=== PATIENT | female | born 1985 | race Caucasian/White ===

== ENCOUNTER → 2021-09-09 | Outpatient (CLI) | payer OTHER ==
--- NOTE | 2021-09-09 14:23 | Diagnostic Imaging Report ---
PROCEDURE: CT sinuses without contrast TECHNIQUE: Multiple contiguous axial images were obtained through the sinuses without the use of intravenous contrast. Coronal and sagittal reformations were then performed. Auto Exposure Controls were utilized during the CT exam to meet ALARA standards for radiation dose reduction. INDICATION: Severe sinus infection. FINDINGS: There is very mild leftward nasal septal deviation and spurring. This is adjacent to but did not distort the left inferior nasal turbinate. There is partial aeration and radha bullosa formation in the right middle nasal turbinate. The maxillary sinus ostia, however, appeared patent bilaterally. There is slight lobular membrane thickening in the floors of the maxillary sinuses bilaterally, slightly greater right where the tissue has a maximal thickness of 3 mm. The ethmoid air cells anteriorly and posteriorly are clear. The frontal sinuses are clear and well aerated. Sphenoid sinuses are clear. There is no mastoid effusion. The external auditory canals and middle ear cavities are normal. The central skull base is unremarkable. Orbits are unremarkable. IMPRESSION: 1. Mild lobular membrane thickening in the maxillary sinus floors. No ostial obstruction, bony destruction, or air-fluid level. 2. Small right middle nasal turbinate radha bullosa and mild leftward nasal septal spurring and deviation. No air-fluid levels. Dictated by: Dictated on workstation # [id number]
== END ==
LOC: RAD 11:45
PROVIDERS: ATTEND Otolaryngology Otolaryngology/Facial Plastic Surgery
DX: J34.2 Deviated nasal septum (principal); J34.89 Other specified disorders of nose and nasal sinuses; J32.9 Chronic sinusitis, unspecified
CPT/HCPCS: 70486

== ENCOUNTER 2021-09-15 11:22 | Outpatient (CLI) | payer OTHER ==
[~2021-09-15] VITALS: Ht 165.1 cm; Wt 60.0 kg
[2021-09-15] MEDS ORDERED: SERT-413 PO (12:45)
== END 2021-09-15 12:52 ==
LOC: PREOP 11:22
PROVIDERS: ATTEND Otolaryngology Otolaryngology/Facial Plastic Surgery
DX: Z01.818 Encounter for other preprocedural examination (principal)

== ENCOUNTER 2021-09-23 05:50 | Day surgery (SDC) | payer OTHER ==
[2021-09-23] VITALS (10 sets, daily range): BP systolic 115–138; BP diastolic 73–97
[~2021-09-23] VITALS: Ht 165 cm; Wt 60.0 kg
[~2021-09-23 05:50] MED LIST: SERT-413 PO
[2021-09-23] MEDS ORDERED: HYDROCORTISONE 100 MG/2 ML (Solu-CORTEF) VIAL IV ONE (06:15)
[2021-09-23] MEDS ORDERED: AMPICILLIN/SULBACTAM INJECTION 1.5 GM in NS (IVPB) 100 ML IV ONE (06:15)
[2021-09-23 06:31] LABS: BASOPHILS # (AUTO) 0.1 10^3/uL (0.0-0.1); BASOPHILS % (AUTO) 1 % (0-10); EOSINOPHILS # (AUTO) 0.1 10^3/uL (0.0-0.3); EOSINOPHILS % (AUTO) 2 % (0-10); HEMATOCRIT 44 % (35-52); HEMOGLOBIN 15.1 g/dL (11.5-16.0); LYMPHOCYTES # (AUTO) 4.4 10^3/uL (1.0-4.0); LYMPHOCYTES % (AUTO) 46 % (12-44); MEAN CORPUSCULAR HEMOGLOBIN 30 pg (25-34); MEAN CORPUSCULAR HGB CONC 34 g/dL (32-36); MEAN CORPUSCULAR VOLUME 88 fL (80-99); MEAN PLATELET VOLUME 9.9 fL (9.0-12.2); MONOCYTES # (AUTO) 0.6 10^3/uL (0.0-1.0); MONOCYTES % (AUTO) 7 % (0-12); NEUTROPHILS # (AUTO) 4.3 10^3/uL (1.8-7.8); NEUTROPHILS % (AUTO) 45 % (42-75); PLATELET COUNT 208 10^3/uL (130-400); WHITE BLOOD COUNT 9.5 10^3/uL (4.3-11.0)
[2021-09-23 06:36] LABS: POTASSIUM 3.6 MMOL/L (3.6-5.0)
[2021-09-23 06:37] LABS: CALCIUM 9.6 MG/DL (8.5-10.1)
[2021-09-23 06:41] LABS: CREATININE SERUM 1.02 MG/DL (0.60-1.30)
[2021-09-23] MEDS: LACTATED RINGERS 1,000 ML IV PRN ×2 (06:43→08:17)
[2021-09-23] MEDS ORDERED: BSS 15 ML ONE (06:57)
[2021-09-23] MEDS ORDERED: LIDOCAINE/EPI 2% 1:100,00 (XYLOCAINE) 20 ML VIAL ONE (06:57)
[2021-09-23] MEDS ORDERED: COCAINE HCL 4% 2 ML SYR ONE (06:57)
[2021-09-23] MEDS ORDERED: PHENYLEPHRINE 0.5% NASAL SPR (NEO-SYNEPHRINE) REG ONE (06:57)
--- NOTE | 2021-09-23 07:09 | Progress Note-Pre Operative ---
Pre-Operative Progress Note H&P Reviewed The H&P was reviewed, patient examined and no changes noted. Date Seen by Provider: Sep 23, 2021 Time Seen by Provider: : Date H&P Reviewed: Sep 23, 2021 Time H&P Reviewed: :30 Pre-Operative Diagnosis: Bilat ESS, Deviated Septum, Bilat Hyper of Inf Turbs ALEXANDRA LÓPEZ MD Sep 23, 2021 07:09
--- NOTE | 2021-09-23 07:10 | Progress Note-Post Operative ---
Post-Operative Progess Note Surgeon (s)/Digital Tech (s) Surgeon ALEXANDRA LÓPEZ MD Digital Tech n/a Pre-Operative Diagnosis Bilat ESS, Deviated Septum, Bilat Hyper of Inf Turbs Post-Operative Diagnosis same Post-Op Procedure Note Date of Procedure: Sep 23, 2021 Name of Procedure Performed: Bilat Ess, Nasal Septoplasty, Bialt Red of Inf Turbs Description & Findings Description and Findings: n/a Anesthesia Type get Estimated Blood Loss minimal Packing dnp bilaterally. Specimen(s) collected/removed bilat Chronic Sinusitis ALEXANDRA LÓPEZ MD Sep 23, 2021 07:10
[2021-09-23] MEDS ORDERED: PROMETHAZINE INJ 25 MG/ML (PHENERGAN) AMP IVP PRN (07:15)
[2021-09-23] MEDS ORDERED: predniSONE 20 MG TAB PO ONE (07:15)
[2021-09-23] MEDS ORDERED: HYDROcodone/APAP 5 MG/325 MG (LORTAB) TAB PO PRN (07:15)
[2021-09-23] MEDS ORDERED: D5 1/2 NS W/KCL 20 MEQ/L 1,000 ML IV SCH (07:15)
[2021-09-23] MEDS ORDERED: GLYCOPYRROLATE 0.2 MG/ML (ROBINUL) 2 ML VIAL ONE (07:49)
[2021-09-23] MEDS ORDERED: NEOSTIGMINE 3 MG/3 ML VIAL ONE (07:49)
[2021-09-23] MEDS ORDERED: ROCURONIUM 10 MG/ML 5 ML SYRINGE IV ONE (07:49)
[2021-09-23] MEDS ORDERED: LIDOCAINE PF 2% 5 ML (XYLOCAINE) VIAL ONE (07:49)
[2021-09-23] MEDS ORDERED: fentaNYL INJ 100 MCG/2 ML AMP ONE (07:49)
[2021-09-23] MEDS ORDERED: MIDAZOLAM 2 MG/2 ML (VERSED) VIAL ONE (07:49)
[2021-09-23] MEDS ORDERED: proPOfol 200 MG/20 ML (DIPRIVAN) VIAL IV ONE (07:49)
[2021-09-23] MEDS ORDERED: ONDANSETRON 4 MG/2 ML (SDV) Z0FRAN ONE (07:49)
[2021-09-23] MEDS ORDERED: SEVOFLURANE (ULTANE) 15 ML INHAL SOLN ONE (09:15)
[2021-09-23] MEDS ORDERED: morphine INJ 10 MG/ML 1ML (SYR OR VIAL) IVP ONE (09:45)
[2021-09-23] MEDS ORDERED: ONDANSETRON 4 MG/2 ML (SDV) Z0FRAN IVP PRN (09:45)
[2021-09-23] MEDS ORDERED: HYDROmorphone 2 MG/ML VIAL (DILAUDID) IV ONE (09:45)
[2021-09-23] MEDS ORDERED: PRD20T PO (09:54)
[2021-09-23] MEDS ORDERED: ACHD5005 PO (09:54)
[2021-09-23] MEDS ORDERED: AMOX-355 PO (09:54)
[2021-09-23] MEDS ORDERED: predniSONE 20 MG TAB PO NR (10:23)
--- NOTE | 2021-09-23 13:20 | Anesthesia-General Post-Op ---
General Patient Condition Mental Status/LOC: Same as Preop Cardiovascular: Satisfactory Nausea/Vomiting: Absent Respiratory: Satisfactory Pain: Controlled Complications: Absent Post Op Complications Complications None Follow Up Care/Instructions Patient Instructions None needed. Anesthesia/Patient Condition Patient Condition Patient was doing well this morning after the procedure, no complaints, stable vital signs, no apparent adverse anesthesia problems. SVETLANA CHAO DO Sep 23, 2021 13:20
== END 2021-09-23 11:05 | disposition home or self-care (01) ==
LOC: SDC 05:50
PROVIDERS: ATTEND Otolaryngology Otolaryngology/Facial Plastic Surgery
DX: J32.9 Chronic sinusitis, unspecified (principal); J34.2 Deviated nasal septum; J34.3 Hypertrophy of nasal turbinates; J34.89 Other specified disorders of nose and nasal sinuses
CPT/HCPCS: 36415; 80048; 84703; 85025; 87081

== ENCOUNTER → 2022-08-18 | Outpatient (CLI) | payer OTHER ==
[~2022-08-18] MED LIST changes: +ACHD5005 PO; +AMOX-355 PO; +PRD20T PO
--- NOTE | 2022-08-18 12:04 | Diagnostic Imaging Report ---
Indication: Routine screening. Comparison is made with prior mammogram of 09/19/2013. 2-D and 3-D bilateral screening mammography was performed with CAD. Both breasts are heterogeneously dense, limiting the sensitivity of mammography. There is a rounded mass in the upper right breast at approximately the 11:00 to 12:00 location approximately 11 to 12 cm from the nipple. This measures approximately 17 mm in size. Left breast is unremarkable. There are no malignant-appearing microcalcifications. Axillae are unremarkable. IMPRESSION: BI-RADS 0 Slightly lobulated density in the upper right breast approximately 12 cm from the nipple, 11:00 to 12:00 location. Further evaluation with ultrasound is recommended. ACR BI-RADS Category 0: Incomplete. (Needs additional imaging evaluation). Result letter will be mailed to the patient. Note: At least 10% of breast cancer is not imaged by mammography. Dictated by: Dictated on workstation # [id number]
== END ==
LOC: RAD 07:30
DX: Z12.31 Encounter for screening mammogram for malignant neoplasm of breast (principal)
CPT/HCPCS: 77063; 77067

== ENCOUNTER → 2022-09-05 | Outpatient (CLI) | payer OTHER ==
--- NOTE | 2022-09-05 10:33 | Diagnostic Imaging Report ---
EXAMINATION: Ultrasound of the right breast. INDICATION: Abnormal mammogram. FINDINGS: The screening mammogram performed on 08/18/2022 noted a 17 mm lobulated rounded mass in the 12 o'clock position of the right breast approximately 12 cm from the nipple. The ultrasound examination of this area does show a lobulated solid mass with a small amount of internal vascularity. In a patient of this age, this could certainly represent a fibroadenoma. In my conversation with the patient, she did relate that she had a prior resection of a mass approximately 10 years ago. She did not recall the nature of the mass but she was told that it was not malignant. Also, during the course of this exam, another mass was identified. This mass lies approximately 6 to 7 cm deep to the nipple and measures 2.1 x 1.0 x 1.4 cm. This mass is not as hypoechoic or lobulated as the lesion in the 12 o'clock position. There does seem to through-transmission associated with this finding and this could represent a cyst which has been complicated by infection or hemorrhage. There is a tiny focus of increased vascularity which would weigh against a cyst; however, this focus of increased vascularity could be artifactual in nature. It is my understanding that the patient has a family history for breast cancer. Given the family history, these two questionable lesions, and the dense fibroglandular tissue throughout each breast, I would recommend that MRI of the breast be performed for a more sensitive evaluation of the breast tissue. Ultimately, I do feel that the solid mass in the 12 o'clock position of the right breast will need to be biopsied using ultrasound guidance. Even so, I do feel the MRI exam would be worthwhile. IMPRESSION: There is a solid lobulated mass corresponding to the finding of the mammogram in the 12 o'clock position of the right breast. There is also another solid-appearing mass deep in the right breast. MRI would be recommended to better characterize these findings and the remainder of the breast tissue as well. Ultimately, the solid mass in the right breast at the 12 o'clock position will need to be biopsied with ultrasound guidance. ACR BI-RADS Category 0: Incomplete. (Needs additional imaging evaluation). Result letter will be mailed to the patient. Note: At least 10% of breast cancer is not imaged by mammography. Dictated by: Dictated on workstation # [id number]
== END ==
LOC: RAD 08:26
DX: N63.15 Unspecified lump in the right breast, overlapping quadrants (principal)

== ENCOUNTER → 2022-09-16 | Outpatient (CLI) | payer OTHER ==
[~2022-09-16] MED LIST changes: +GADOBUTROL 15 MMOL/15 ML (GADAVIST) VIAL IV ONE
--- NOTE | 2022-09-20 15:26 | Diagnostic Imaging Report ---
EXAMINATION: MRI BREAST BILAT W W/O CON INDICATION: Abnormal right breast findings on recent screening mammogram and diagnostic right breast ultrasound. Pain and palpable lump in the right breast. Patient reports family history of breast cancer and personal history of previous benign excisional right breast biopsy. TECHNIQUE: Utilizing a 1.5 Melanie magnet, the patient was placed in the prone position with a dedicated breast coil in place. Axial STIR, T2 fat sat, T1 and T1 fat-sat images are obtained without contrast. Postcontrast high-resolution dynamic images are also obtained. Pre and post contrasted images are then evaluated with ADmantX for evaluation of possible angiogenesis. 6 mL of Gadavist gadolinium contrast material was administered intravenously. COMPARISON: Screening mammogram performed on 08/18/2022 and right breast ultrasound performed on 09/05/2022. FINDINGS: RIGHT BREAST: The breast is composed of extreme fibroglandular tissue. There is marked background parenchymal enhancement, with scattered foci of enhancement also related to background. A 1.5 x 1.5 x 1.6 cm T2 hyperintense mass with lobulated margins is demonstrated in the 12 o'clock posterior depth breast approximately 10 cm from the nipple and demonstrates persistent-type enhancement on kinetic analysis. This corresponds with recent mammogram and ultrasound findings. Also corresponding with prior ultrasound findings is a similar appearing 1.1 x 1.6 x 1.3 cm circumscribed, enhancing mass near the 12 o'clock axis at middle depth 6.5 cm from the nipple. In the 3-4 o'clock anterior depth breast approximately 3.5 cm medial to the nipple and located immediately adjacent to the skin surface is a smaller, similar-appearing 0.5 x 1.1 x 1.6 cm bilobed, enhancing mass with persistent-type enhancement on kinetic analysis. There is no other suspicious mass or non-mass enhancement in the right breast that stands out above background. There is no axillary or internal mammary adenopathy. LEFT BREAST: The breast is composed of extreme fibroglandular tissue. There is marked background parenchymal enhancement, with scattered foci of enhancement also related to background. There is no suspicious mass or non-mass enhancement that stands out above background. There is no axillary or internal mammary adenopathy. 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 Two of these masses along the 12 o'clock axis were seen on prior ultrasound imaging. As previously recommended, ultrasound-guided biopsy is recommended for the right breast mass at 12 o'clock posterior depth given its somewhat irregular margins. 2nd look (MRI directed) ultrasound of the mass in the 3-4 o'clock anterior depth right breast is also recommended and can be performed at the time of right breast biopsy. Unless otherwise indicated by ultrasound of the right breast mass at 3-4 o'clock or biopsy results of the right breast mass at 12 o'clock posterior depth, short interval follow-up is recommended with repeat ultrasound in 6 months to demonstrate stability. BI-RADS Category 3: Probably Benign RECOMMENDATIONS: Given patient's reported family history of breast cancer, formal risk assessment and possible genetic analysis are recommended, if not already performed. If patient is found to have a genetic mutation and/or lifetime risk of developing breast cancer is greater than 20%, consideration can be given to supplemental screening with annual breast MRI, alternating every 6 months with annual screening mammogram. Dictated by: Dictated on workstation # [id number]
== END ==
LOC: RAD 08:40
PROVIDERS: ATTEND Family Medicine
DX: N63.10 Unspecified lump in the right breast, unspecified quadrant (principal); R92.8 Other abnormal and inconclusive findings on diagnostic imaging of breast
CPT/HCPCS: 77049

== ENCOUNTER → 2022-09-29 | Outpatient (CLI) | payer OTHER ==
[~2022-09-29] VITALS: Ht 165.1 cm; Wt 59.1 kg
[~2022-09-29] MED LIST changes: -GADOBUTROL 15 MMOL/15 ML (GADAVIST) VIAL IV ONE; +LIDOCAINE 1% INJ 10 ML VIAL INJ ONE; +LIDOCAINE 1% INJ 10 ML VIAL ONE
--- NOTE | 2022-09-29 09:48 | Diagnostic Imaging Report ---
INDICATION: Right breast mass. Patient presents for ultrasound guided core biopsy. Patient brought to the procedure and placed on table in the supine position. Ultrasound imaging of the upper right breast was performed to evaluate appropriate entry site. Right breast was then prepped and draped in usual sterile fashion. Small amount of 1% lidocaine was utilized for local anesthesia. 4 core biopsies were obtained of the lobulated hypoechoic solid mass 12:00 location right breast, 12 cm from the nipple utilizing 14-gauge achieve needle. A marker clip was then deployed. Needle was removed and hemostasis was obtained. Patient tolerated the procedure well and left the Department in stable condition. IMPRESSION: Successful ultrasound-guided core biopsy of the lobulated solid mass 12:00 location right breast, 12 cm from the nipple. Pathology results are currently pending. Dictated by: Dictated on workstation # [id number]
== END ==
LOC: RAD 09:00
PROVIDERS: ATTEND Nurse Practitioner Family
DX: N63.15 Unspecified lump in the right breast, overlapping quadrants (principal)
CPT/HCPCS: 19083